=== PATIENT | female | born 1970 | race Caucasian/White ===

== ENCOUNTER 2020-10-12 05:14 | Day surgery (SDC) | payer MEDICAID ==
[2020-10-12] VITALS (7 sets, daily range): BP systolic 95–126; BP diastolic 51–70
[~2020-10-12] VITALS: Ht 170.2 cm; Wt 117.8 kg
[~2020-10-12 05:14] MED LIST: ACYC-126 PO; CYCL-1 PO; ENAL10TA19 PO; ESTR1TAB28 PO; GABA600T13 PO; HYDR50TA65 PO; LORA10TA7 PO; LURA60TA PO; MORP-92 PO; OXYB15TA19 PO; TOPI50TA24 PO; TRAZ-256 PO; ringers solution, lacted 1,000 ML IV SCH
[2020-10-12] MEDS ORDERED: scopolamine 1mg/72 hr patch TD SCH (05:30)
[2020-10-12] MEDS ORDERED: famotidine 20mg tablet PO ONE (05:30)
[2020-10-12] MEDS ORDERED: cefazolin/dext.iso 2gm/100ml IV ONE (05:30)
[2020-10-12] MEDS ORDERED: BUPIVAcaine/PF 2.5mg/ml (0.25%) 10ml vial ONE (07:03)
[2020-10-12 07:14] LABS: BASOPHILS % (AUTO) 0.2 % (0-1); EOSINOPHILS % (AUTO) 0.2 % (0-6); LYMPHOCYTES # (AUTO) 2.2 X10'3 (1.1-4.8); LYMPHOCYTES % (AUTO) 31.9 % (21-51); MEAN CORPUSCULAR HEMOGLOBIN 29.2 PG (27.0-31.0); MEAN CORPUSCULAR HGB CONC 34.3 g/dL (33.0-36.5); MEAN CORPUSCULAR VOLUME 85.2 FL (78-98); MEAN PLATELET VOLUME 7.8 FL (7.4-10.4); MONOCYTES # (AUTO) 0.4 X10'3 (0-0.9); MONOCYTES % (AUTO) 5.3 % (2-12); NEUTROPHILS # (AUTO) 4.2 X10'3 (1.8-7.7); NEUTROPHILS % (AUTO) 62.4 % (42-75); PRE OP HEMATOCRIT 35.3 % (35.0-45.0); PRE OP HEMOGLOBIN 12.1 g/dL (12.0-16.0); PRE OP PLATELET COUNT 218 X10'3 (140-440); RED BLOOD COUNT 4.15 X10'6 (4.20-5.60); RED CELL DISTRIBUTION WIDTH 14.1 % (11.5-14.5)
[2020-10-12] MEDS ORDERED: LIDOcaine 1% 30ml preserv. free vial ONE (07:43)
[2020-10-12] MEDS ORDERED: MIDAZolam 1 MG/ML 5ML VIAL ONE (07:54)
[2020-10-12] MEDS ORDERED: fentaNYL/PF 50MCG/1 ML 2ML syringe ONE (07:54)
[2020-10-12 07:58] LABS: ALBUMIN 3.4 G/DL (3.4-5.0); ALKALINE PHOSPHATASE 79 IU/L (46-116); BLOOD UREA NITROGEN 11 MG/DL (7-18); BUN/CREATININE RATIO 13.3 (6.6-38.0); CALCIUM 7.9 MG/DL (8.5-10.1); CHLORIDE 108 MMOL/L (99-107); CREATININE 0.83 MG/DL (0.40-0.90); PRE OP ALT 22 U/L (30-65); PRE OP ANION GAP 9 (8-16); PRE OP AST 16 U/L (10-37); PRE OP BILIRUB, TOTAL 0.2 MG/DL (0.0-1.0); PRE OP GLUCOSE 100 MG/DL (70-104); PRE OP POTASSIUM 3.7 MMOL/L (3.4-5.1); PRE OP SODIUM 141 MMOL/L (135-145); TOTAL PROTEIN 6.8 G/DL (6.4-8.2); eGFR 72 ML/MIN
[2020-10-12] MEDS ORDERED: acetaminophen 1000 MG/100ml vial IV ONE (08:07)
[2020-10-12] MEDS ORDERED: propofol inj 20 ML IV ONE (08:36)
[2020-10-12] MEDS ORDERED: LIDOcaine 2% (20mg/ml) 5ml vial ONE (08:36)
--- NOTE | 2020-10-12 08:50 | NUR ---
RECEIVED FROM OR VIA [facility] WITH DR PITT-REPORT GIVEN, PT AWAKE, DENIES PAIN, VSS, CSM INTACT, 20G L A/C.
[2020-10-12] MEDS ORDERED: oxyCODONE IR 5mg (immed. release) tablet PO STA (09:11)
--- NOTE | 2020-10-12 09:27 | NUR ---
PT C/O PAIN 6/10 CHRONIC PAIN TAKEN MS CONTIN AT HOME, GIVEN 1 OXYCODONE PRESCRIBED FOR AT HOME POST SURGERY.
--- NOTE | 2020-10-12 09:40 | NUR ---
PT GETTING DRESSED, PAIN CONTROLLED WITH 1 OXYCODONE 5/325, PT UP TO VOID W/O PROBLEM, VSS, PIV D/CD, DRESSING TO RIGHT HAND-CDI, CSM INTACT, GIVEN D/C INSTRUCTIONS=-ALL QUESTIONS ANSWERED, TAKEN VIA W/C TO FAMILY VEHICLE WITH ALL BELONGINGS.
== END 2020-10-12 09:40 | disposition home or self-care (01) ==
LOC: PAS 05:14
PROVIDERS: ATTEND Orthopaedic Surgery Hand Surgery
DX: G56.01 Carpal tunnel syndrome, right upper limb (principal); M65.311 Trigger thumb, right thumb; M65.331 Trigger finger, right middle finger; M65.341 Trigger finger, right ring finger; E11.9 Type 2 diabetes mellitus without complications; G89.29 Other chronic pain; F31.9 Bipolar disorder, unspecified; J45.909 Unspecified asthma, uncomplicated; E66.9 Obesity, unspecified; Z68.41 Body mass index [BMI] 40.0-44.9, adult; Z88.8 Allergy status to other drugs, medicaments and biological substances; Z90.710 Acquired absence of both cervix and uterus; Z98.890 Other specified postprocedural states; Z87.891 Personal history of nicotine dependence; Z72.89 Other problems related to lifestyle; Z79.899 Other long term (current) drug therapy
CPT/HCPCS: 26055; 36415; 64721; 80053; 82948; 85025; 93005; J0131; J2001; J2250; J2704; J3010; J3490; Z7506; Z7512; A4215; J7120